=== PATIENT | female | born 1955 | race Caucasian/White ===

== ENCOUNTER 2017-08-02 12:27 | Emergency (ER) | payer OTHER ==
[2017-08-02] MEDS ORDERED: DIPH/PERTUSS(ACELL)/TETANUS VAC/PF 0.5 ML SYR (>=10YO) IM ONE (14:21)
--- NOTE | 2017-08-02 14:22 | ER Document Report ---
HPI - HPI Pain Level: 2 Context: Patient is a 62-year-old female presents emergency department complaining of a fall earlier this afternoon. Patient states that she wanted to let her dogs out and was at the end of her patio and slipped on some mud landing on her left elbow with an abrasion of her left ribs. She states that she came in to have her ribs evaluated because she is concerned she broke a rib. She admits to pain with deep inspiration, certain motions and bending over. At rest she denies any shortness of breath. States that her last tetanus was in 2010 is requesting an update today. Otherwise denies any head injury, LOC, headache, nausea, vomiting. Past medical history significant for diabetes. Patient is not on blood thinners. - REPRODUCTIVE Reproductive: DENIES: : Past Medical History - Social History Smoking Status: Never Smoker Family History: Reviewed & Not Pertinent - Past Medical History Cardiac Medical History: Reports: Hx Hypertension Denies: Hx Coronary Artery Disease, Hx Heart Attack Pulmonary Medical History: Denies: Hx Asthma, Hx Bronchitis, Hx COPD, Hx Pneumonia Neurological Medical History: Denies: Hx Cerebrovascular Accident, Hx Seizures Endocrine Medical History: Reports: Hx Diabetes Mellitus Type 2 GI Medical History: Reports: Hx Hepatitis - hep B, Hx Hiatal Hernia - POSS. Denies: Hx Ulcer Musculoskeltal Medical History: Denies Hx Arthritis Infectious Medical History: Reports: Hx Hepatitis - hep B Past Surgical History: Reports: Hx Bowel Surgery - gastric bypass, Hx Cholecystectomy, Hx Tonsillectomy. Denies: Hx Hysterectomy, Hx Mastectomy, Hx Open Heart Surgery, Hx Pacemaker - Immunizations Hx Diphtheria, Pertussis, Tetanus Vaccination: Yes - states up to date Hx Pneumococcal Vaccination: 03/21/11 Vertical Provider Document - CONSTITUTIONAL Agree With Documented VS: Yes Notes: PHYSICAL EXAMINATION: GENERAL: Well-appearing, well-nourished and in no acute distress. HEAD: Atraumatic, normocephalic. NECK: Normal range of motion, supple without lymphadenopathy. Trachea midline LUNGS: Breath sounds clear to auscultation bilaterally and equal. No wheezes rales or rhonchi. Minimal tenderness along the left lower rib cage without any palpable crepitus, deformities or evidence of ecchymosis. HEART: Regular rate and rhythm without murmurs. Pulses intact all throughout. Musculoskeletal: Normal range of motion, no pitting or edema. No cyanosis. NEUROLOGICAL: Cranial nerves grossly intact. Normal speech, normal gait. PSYCH: Normal mood, normal affect. SKIN: Warm, No active bleeding.Skin tear over the lateral aspect of the left elbow measuring approximately 4 cm in length and 2 cm wide. - INFECTION CONTROL TRAVEL OUTSIDE OF THE [place] IN LAST 30 DAYS: No - RESPIRATORY O2 Sat by Pulse Oximetry: 100 Course - Re-evaluation Re-evalutation: 08/02/17 14:37 Patient is a 62-year-old female is hemodynamically stable, no acute distress and afebrile. Wound was cleaned and dressed at the bedside with a dry sterile dressing. Pending radiology at this time. Patient is declining any pain medication at this time. She did not take anything prior to arrival 08/02/17 15:32 No evidence of a septic joint, gout flare, dislocation, or fracture on exam and imaging. Vitals wnl. At this time, I do not see an indication for labs or further imaging. Will discharge with conservative measures, return precautions, and follow-up recommendations. - Vital Signs Vital signs: Temp Pulse Resp BP Pulse Ox 97.9 F 69 12 146/98 H 100 08/02/17 13:01 08/02/17 13:01 08/02/17 13:01 08/02/17 13:01 08/02/17 13:01 - Diagnostic Test Radiology reviewed: Image reviewed, Reports reviewed Discharge - Discharge Clinical Impression: Fall Qualifiers: Encounter type: initial encounter Qualified Code(s): W19.XXXA - Unspecified fall, initial encounter Condition: Good Disposition: HOME, SELF-CARE Instructions: Use of Letq-Rrf-Phacnmo Ibuprofen ([facility]), Rib Contusion ([facility]), Skin Tear ([facility]) Additional Instructions: How to use the incentive spirometer 1.Sit on the edge of your bed if possible, or sit up as far as you can in bed. 2.Hold the incentive spirometer in an upright position. 3.Place the mouthpiece in your mouth and seal your lips tightly around it. 4.Breathe in slowly and as deeply as possible. Notice the yellow piston rising toward the top of the column. The yellow indicator should reach the blue outlined area. 5.Hold your breath as long as possible. Then exhale slowly and allow the piston to fall to the bottom of the column. 6.Rest for a few seconds and repeat steps one to five at least 10 times every hour. 7.Position the yellow indicator on the left side of the spirometer to show your best effort. Use the indicator as a goal to work toward during each slow deep breath. 8.After each set of 10 deep breaths, cough to be sure your lungs are clear. If you have an incision, support your incision when coughing by placing a pillow firmly against it. 9.Once you are able to get out of bed safely, take frequent walks and practice the cough. Forms: Elevated Blood Pressure Referrals: MOY OTT MD [ACTIVE STAFF] - Follow up in 1 week
--- NOTE | 2017-08-02 15:24 | RADIOLOGY REPORT (SQ) ---
EXAM DESCRIPTION: RIBS LEFT W/PA CHEST COMPLETED DATE/TIME: 08/02/2017 3:05 pm REASON FOR STUDY: fall left lower rib pain COMPARISON: None. TECHNIQUE: Frontal view of the chest and additional views of the left ribs acquired. NUMBER OF VIEWS: Four views LIMITATIONS: None. FINDINGS: FRONTAL CXR: No pneumothorax. No pleural effusion. No atelectasis or infiltrates. RIBS: No displaced rib fractures. No lytic or blastic bony lesions. OTHER: Operative change noted upper abdomen. IMPRESSION: NO PNEUMOTHORAX. NO DISPLACED RIB FRACTURES. COMMENT: SITE OF TRAUMA/COMPLAINT MARKED/STAMP COMPLETED: No TECHNICAL DOCUMENTATION: JOB ID: [id number] [employer]- All Rights Reserved
--- NOTE | 2017-08-02 15:27 | RADIOLOGY REPORT (SQ) ---
EXAM DESCRIPTION: ELBOW LEFT OVER 2 VIEWS COMPLETED DATE/TIME: 08/02/2017 3:05 pm REASON FOR STUDY: fall COMPARISON: 2012 NUMBER OF VIEWS: Four views. TECHNIQUE: AP, lateral, and both oblique radiographic images acquired of the left elbow. LIMITATIONS: None. FINDINGS: MINERALIZATION: Normal. BONES: No acute fracture or dislocation. No worrisome bone lesions. JOINT: Joint spaces maintained. No obvious joint fluid SOFT TISSUES: No metallic foreign bodies. OTHER: No other significant finding. IMPRESSION: No acute fractures identified. TECHNICAL DOCUMENTATION: JOB ID: [id number] [employer]- All Rights Reserved
[2017-08-02 15:51] VITALS: BP 130/79
== END 2017-08-02 15:51 | disposition home or self-care (01) ==
LOC: ER 12:27
DX: S59.902A Unspecified injury of left elbow, initial encounter (principal); S20.312A Abrasion of left front wall of thorax, initial encounter; R07.1 Chest pain on breathing; E11.9 Type 2 diabetes mellitus without complications; W01.0XXA Fall on same level from slipping, tripping and stumbling without subsequent striking against object, initial encounter
CPT/HCPCS: 90471; 90715; 99283

== ENCOUNTER → 2018-08-05 | Outpatient (CLI) | payer OTHER ==
--- NOTE | 2018-08-05 13:06 | RADIOLOGY REPORT (SQ) ---
EXAM DESCRIPTION: MRI HEAD WITHOUT COMPLETED DATE/TIME: 08/05/2018 8:04 am REASON FOR STUDY: DIPLOPIA (H53.2) H53.2 DIPLOPIA COMPARISON: None. TECHNIQUE: Multiplanar imaging includes non-contrasted T1, T2, FLAIR, and diffusion with ADC map seq uences. Images stored on PACS. LIMITATIONS: None. FINDINGS: ANATOMY: No anomalies. Normal vascular flow voids. Pituitary fossa normal. CSF SPACES: Normal in size and contour. No hemorrhage. CEREBRUM: Sulci and gyri normal in size and contour. Normal white matter signal on FLAIR imaging. No evidence of hemorrhage, mass, or extraaxial fluid collection. POSTERIOR FOSSA: No signal alteration. No hemorrhage. No edema, masses or mass effect. Internal vianney tory canals, cerebello-pontine angles, mastoids normal. DIFFUSION IMAGING: Negative for acute or sub-acute infarction. ORBITS: No masses. Globes normal. PARANASAL SINUSES: No fluid levels. Mucosa normal. OTHER: No other significant finding. IMPRESSION: NORMAL MRI OF THE BRAIN WITHOUT INTRAVENOUS GADOLINIUM CONTRAST. EVIDENCE OF ACUTE STROKE: NO. TECHNICAL DOCUMENTATION: JOB ID: [id number] [employer]- All Rights Reserved Reading location - IP/workstation name: [email or web address]
== END ==
LOC: RAD 07:12
PROVIDERS: ATTEND Specialist
DX: H53.2 Diplopia (principal)
CPT/HCPCS: 70551

== ENCOUNTER → 2019-06-13 | Outpatient (CLI) | payer MEDICARE, OTHER ==
--- NOTE | 2019-06-13 10:43 | WOMENS IMAGING REPORT ---
EXAM DESCRIPTION: BONE DENSITY HIP/SPINE COMPLETED DATE/TIME: 06/13/2019 9:58 am REASON FOR STUDY: N95.9 BONE DENSITY N95.9 UNSPECIFIED MENOPAUSAL AND PERIMENOPAUSAL DISORDER COMPARISON: 06/13/2019 TECHNIQUE: Dual-Energy X-ray Absorptiometry (DEXA) of the AP Spine and Hip. LIMITATIONS: None. FINDINGS: LUMBAR SPINE: The bone mineral density (BMD) measured from L1-L4 in the AP projection correlates with a T-score of 1.5, which is normal as defined by the World Health Organization. There has been a -7.6% change sinc e baseline. HIP: The bone mineral density (BMD) measured in the left hip correlates with a T-score of -1.2, which is o steopenia as defined by the World Health Organization. There has been a -23.8% change since baseline . IMPRESSION: 1. LUMBAR SPINE: NORMAL. 2. HIP: OSTEOPENIA. COMMENT: The World Health Organization defines low BMD as follows: T-score: Normal: Greater than -1.0 Osteopenia: Between -1.0 and -2.5 Osteoporosis: Less than -2.5 without fractures Established osteoporosis: Less than -2.5 with fractures In general, you may wish to consider: Diagnosis Treatment Follow-up DEXA Normal BMD Prevention 2-3 years Osteopenia Prevention/Therapy 1-2 years Osteoporosis Therapy Yearly TECHNICAL DOCUMENTATION: JOB ID: [id number]- All Rights Reserved Reading location - IP/workstation name: [email or web address]
== END ==
LOC: WI 09:20
PROVIDERS: ATTEND Internal Medicine
DX: M85.88 Other specified disorders of bone density and structure, other site (principal); N95.9 Unspecified menopausal and perimenopausal disorder
CPT/HCPCS: 77080

== ENCOUNTER 2020-06-27 06:37 | Emergency (ER) | payer MEDICARE, OTHER ==
--- NOTE | 2020-06-27 07:36 | RADIOLOGY REPORT (SQ) ---
EXAM: HAND LEFT 3 VIEWS CLINICAL DATA: 65 years Female bone pain, hit back of hand on door frame, pain in fourth and fifth metacarpal area TECHNICAL DATA: Three x-ray views of the left hand were performed on 06/27/2020 and 6:54 AM. COMPARISONS: None FINDINGS: There is no evidence of fracture or dislocation. There is no significant arthritis or degenerative change. No focal lytic or sclerotic bone lesions are seen. Bone mineralization is normal. No acute soft tissue abnormalities are identified. IMPRESSION: No evidence of acute osseous injury involving the left hand.
--- NOTE | 2020-06-27 10:05 | ER Document Report ---
ED Hand/Wrist Injury - General Chief Complaint: Hand Injury Stated Complaint: HAND INJURY Time Seen by Provider: 06/27/20 09:42 Primary Care Provider: MILTON YANCEY MD [Primary Care Provider] - Follow up as needed Notes: CHIEF COMPLAINT: Left hand injury HPI: 65-year-old female [id number] with left lateral hand injury last night hit it on a door jam. Did use ice and Motrin last night still with some bruising so wanted evaluated for fracture. Denies numbness or tingling. ROS: See HPI - all other systems were reviewed and are otherwise negative Constitutional: no fever Integumentary: Positive bruise Allergy: no hives Musculoskeletal: + extremity pain or swelling Neurological: no numbness/tingling, no weakness MEDICATIONS: I agree with the patient medications as charted by the RN. ALLERGIES: I agree with the allergies as charted by the RN. PAST MEDICAL HISTORY/PAST SURGICAL HISTORY: Reviewed and agree as charted by RN. SOCIAL HISTORY: Reviewed and agree as charted by RN. FAMILY HISTORY: No significant familial comorbid conditions directly related to patient complaint EXAM: Reviewed vital signs as charted by RN. CONSTITUTIONAL: Alert and oriented and responds appropriately to questions. Well-appearing; well-nourished HEAD: Normocephalic; atraumatic EYES:Conjunctivae clear, sclerae non-icteric ENT: normal nose; no rhinorrhea; moist mucous membranes NECK: Supple without meningismus; non-tender; no cervical lymphadenopathy, no masses CARD: symmetric distal pulses RESP: Normal chest excursion without splinting or tachypnea ABD/GI: non-distended. BACK: The back appears normal EXT: Normal ROM in all joints; no cyanosis, no effusions, no edema. There is a small bruised area on the lateral aspect of the left hand at the base of the fifth metacarpal. Mild tenderness on palpation of this region. Able to fully flex and extend the fingers of the left hand. No snuffbox tenderness. Radial and ulnar pulses are present in the left wrist. Sensation is intact in the f ingertips with capillary refill less than 3 seconds SKIN: Normal color for age and race; warm; dry; good turgor NEURO: Moves all extremities equally; Motor and sensory function intact PSYCH: The patient's mood and manner are appropriate. Grooming and personal hygiene are appropriate. MDM: 65-year-old female with a contusion type injury to the left hand. Struck it on a door jam. Radiology does not feel there is a fracture in the hand on x- ray. Will place an Wan wrap for comfort follow-up PCP TRAVEL OUTSIDE OF THE [place] IN LAST 30 DAYS: No - Related Data Allergies/Adverse Reactions: Penicillins Allergy (Severe, Verified 08/28/12 06:22) Home Medications: metformin, amaryl, trulicity Past Medical History - Social History Smoking Status: Never Smoker Family History: Reviewed & Not Pertinent - Past Medical History Cardiac Medical History: Reports: Hx Hypertension Denies: Hx Coronary Artery Disease, Hx Heart Attack Pulmonary Medical History: Denies: Hx Asthma, Hx Bronchitis, Hx COPD, Hx Pneumonia Neurological Medical History: Denies: Hx Cerebrovascular Accident, Hx Seizures Endocrine Medical History: Reports: Hx Diabetes Mellitus Type 2 Renal/ Medical History: Denies: Hx Peritoneal Dialysis GI Medical History: Reports: Hx Hepatitis - hep B, Hx Hiatal Hernia - POSS. Denies: Hx Ulcer Musculoskeletal Medical History: Denies Hx Arthritis Infectious Medical History: Reports: Hx Hepatitis - hep B Past Surgical History: Reports: Hx Bowel Surgery - gastric bypass, Hx Cholecystectomy, Hx Tonsillectomy. Denies: Hx Hysterectomy, Hx Mastectomy, Hx Open Heart Surgery, Hx Pacemaker - Immunizations Hx Diphtheria, Pertussis, Tetanus Vaccination: Yes - states up to date Hx Pneumococcal Vaccination: 03/21/11 Physical Exam - Vital signs Vitals: Temp Pulse Resp BP Pulse Ox 97.9 F 73 16 164/73 H 100 06/27/20 06:42 06/27/20 06:42 06/27/20 06:42 06/27/20 06:42 06/27/20 06:42 Course - Vital Signs Vital signs: Temp Pulse Resp BP Pulse Ox 97.9 F 73 16 164/73 H 100 06/27/20 06:42 06/27/20 06:42 06/27/20 06:42 06/27/20 06:42 06/27/20 06:42 - Laboratory Results Critical Laboratory Results Reviewed: No Critical Results - Radiology Results Critical Radiology Results Reviewed: No Critical Results Discharge - Discharge Clinical Impression: Contusion of hand, left Qualifiers: Encounter type: initial encounter Qualified Code(s): S60.222A - Contusion of left hand, initial encounter Condition: Stable Disposition: HOME, SELF-CARE Instructions: Contusion ([facility]) Additional Instructions: Use the Wan wrap for comfort. Continue Motrin for pain. Ice the hand twice daily for 5 to 10 minutes at a time do not place ice directly on the skin. Follow-up with primary care provider for reevaluation of symptoms call for appointment Referrals: MILTON YANCEY MD [Primary Care Provider] - Follow up as needed
[2020-06-27 10:20] VITALS: BP 148/63
== END 2020-06-27 10:18 | disposition home or self-care (01) ==
LOC: ER 06:37
DX: S60.222A Contusion of left hand, initial encounter (principal); W22.09XA Striking against other stationary object, initial encounter; I10 Essential (primary) hypertension; E11.9 Type 2 diabetes mellitus without complications; Z98.84 Bariatric surgery status
CPT/HCPCS: 99283